=== PATIENT | female | born 1995 | race Caucasian/White ===

== ENCOUNTER 2017-06-29 16:28 | Emergency (ER) | payer MEDICAID ==
[~2017-06-29] VITALS: Ht 170.2 cm; Wt 106.9 kg
[2017-06-29 17:24] LABS: PATH.CAST-FLAG NOT PRESENT; SPERM-FLAG NOT PRESENT; SRC-FLAG NOT PRESENT; XTAL-FLAG NOT PRESENT; YLC-FLAG NOT PRESENT
[2017-06-29 18:31] LABS: BLOOD UREA NITROGEN 6 mg/dL (7-18)
[2017-06-29 18:52] LABS: ASPARTATE AMINO TRANSFERASE 74 U/L (15-37)
[2017-06-29 19:01] VITALS: BP 133/76
== END 2017-06-29 19:38 | disposition home or self-care (01) ==
LOC: ED 19:30
DX: O20.0 Threatened abortion (principal); E11.65 Type 2 diabetes mellitus with hyperglycemia
CPT/HCPCS: 36415; 76830; 80053; 81001; 83690; 84156; 84702; 85025; 86901; 87086; 99285